=== PATIENT | female | born 1955 | race Two or more races ===

== ENCOUNTER 2019-10-25 12:22 | Emergency (ER) | payer OTHER, MEDICAID ==
[~2019-10-25] VITALS: Ht 154.9 cm; Wt 71.7 kg
[2019-10-25 12:28] VITALS: Ht 154.9 cm; Wt 71.7 kg
[2019-10-25 14:16] LABS: microscopic required? NO
[2019-10-25 14:20] LABS: BASOPHIL % 0.3 % (0-2); PLATELET COUNT 205 x10^3mcL (130-400); RED CELL DISTRIBUTION WIDTH 13.4 % (11.5-14.5)
[2019-10-25 14:22] LABS: UA SPECIFIC GRAVITY <=1.005 (1.005-1.035); urine erythrocyte NEGATIVE (NEGATIVE)
[2019-10-25 15:26] LABS: ALBUMIN 3.5 g/dL (3.4-5.0); ALKALINE PHOSPHATASE 69 U/L (46-116); ALT/SGPT 20 U/L (14-59); AST/SGOT 17 U/L (15-37); BILIRUBIN TOTAL 0.2 mg/dL (0.20-1.00); CALCIUM 8.9 mg/dL (8.5-10.1); CARBON DIOXIDE 30.7 mmol/L (21-32); CHOLESTEROL 189 mg/dL (<200); CREATININE SERUM 0.8 mg/dL (0.6-1.0); GFR1 > 60 mL/min; GLUCOSE SERUM 108 mg/dL (74-106); LIPASE 169 IU/L (73-393); TOTAL PROTEIN, SERUM 7.5 g/dL (6.4-8.2); TRIGLYCERIDES 125 mg/dL (<150)
[2019-10-25 15:28] LABS: HDL CHOLESTEROL 63 mg/dL (40-60)
[2019-10-25 15:31] LABS: FREE T4 1.06 ng/dL (0.76-1.46); FREE THYROXINE INDEX 2.9 ug/dL (1.4-4.5)
[2019-10-25 15:57] LABS: T3 TOTAL 1.19 ng/mL
[2019-10-25 15:59] LABS: CHLORIDE SERUM 104 mmol/L (98-107); POTASSIUM SERUM 3.8 mmol/L (3.5-5.1); SODIUM SERUM 143 mmol/L (136-145)
[2019-10-25 16:32] VITALS: BP 175/82
== END 2019-10-25 16:32 | disposition home or self-care (01) ==
LOC: ED 12:22
PROVIDERS: Specialist
DX: R10.812 Left upper quadrant abdominal tenderness (principal); R11.0 Nausea; I10 Essential (primary) hypertension; E11.9 Type 2 diabetes mellitus without complications; E78.00 Pure hypercholesterolemia, unspecified
CPT/HCPCS: 83880; 84439; J1885; J2405; J3010; J7030

== ENCOUNTER 2019-12-01 17:31 | Emergency (ER) | payer OTHER, MEDICAID ==
[~2019-12-01] VITALS: Ht 154.9 cm; Wt 68.0 kg
[2019-12-01 17:40] VITALS: Ht 154.9 cm; Wt 68.0 kg
[2019-12-01 19:04] VITALS: BP 129/65
== END 2019-12-01 19:04 | disposition home or self-care (01) ==
LOC: ED 17:31
DX: M54.2 Cervicalgia (principal); M25.512 Pain in left shoulder; R20.0 Anesthesia of skin; I10 Essential (primary) hypertension; E11.9 Type 2 diabetes mellitus without complications; E78.00 Pure hypercholesterolemia, unspecified
CPT/HCPCS: J1885

== ENCOUNTER 2020-08-22 11:37 | Emergency (ER) | payer OTHER, MEDICAID ==
[~2020-08-22] VITALS: Ht 154.9 cm; Wt 68.0 kg
[2020-08-22 11:41] VITALS: BP 182/82; Ht 154.9 cm; Wt 68.0 kg
[2020-08-22 13:06] LABS: BASOPHIL % 0.6 % (0.2-1.3); PLATELET COUNT 212 x10^3mcL (179-408); RED CELL DISTRIBUTION WIDTH 13.1 % (12.3-17.7)
[2020-08-22 13:58] LABS: ALBUMIN 3.8 g/dL (3.4-5.0); ALKALINE PHOSPHATASE 81 U/L (46-116); ALT/SGPT 31 U/L (14-59); AST/SGOT 32 U/L (15-37); BILIRUBIN TOTAL 0.51 mg/dL (0.20-1.00); CALCIUM 8.9 mg/dL (8.5-10.1); CARBON DIOXIDE 25.5 mmol/L (21-32); CHLORIDE SERUM 102 mmol/L (98-107); CREATININE SERUM 0.6 mg/dL (0.6-1.0); GFR1 > 60 mL/min; GLUCOSE SERUM 169 mg/dL (74-106); LIPASE 174 IU/L (73-393); POTASSIUM SERUM 4.3 mmol/L (3.5-5.1); SODIUM SERUM 140 mmol/L (136-145); TOTAL PROTEIN, SERUM 7.1 g/dL (6.4-8.2)
[2020-08-22 14:14] LABS: microscopic required? YES; urine erythrocyte NEGATIVE (NEGATIVE)
== END 2020-08-22 18:13 | disposition home or self-care (01) ==
LOC: ED 11:37
PROVIDERS: Emergency Medicine
DX: K29.70 Gastritis, unspecified, without bleeding (principal); I10 Essential (primary) hypertension; E11.9 Type 2 diabetes mellitus without complications; E78.00 Pure hypercholesterolemia, unspecified